=== PATIENT | male | born 1950 | race Caucasian/White ===

== ENCOUNTER → 2020-04-30 | Outpatient (CLI) | payer OTHER ==
[~2020-04-30] MED LIST: DOXYCYCLINE HYC50 MG PO; MELOXICAM15 MG PO; NORCO 10-325 T1 EACH PO; TAPAZOLE10 MG PO; XARELTO10 MG PO
== END ==
LOC: SJCVCIMAG 11:15
PROVIDERS: ATTEND Internal Medicine Cardiovascular Disease
DX: Z01.818 Encounter for other preprocedural examination (principal); I08.2 Rheumatic disorders of both aortic and tricuspid valves; R00.0 Tachycardia, unspecified; I10 Essential (primary) hypertension; I49.1 Atrial premature depolarization

== ENCOUNTER → 2020-05-06 | Outpatient (CLI) | payer OTHER ==
[~2020-05-06] VITALS: Ht 177.8 cm; Wt 127.0 kg
[2020-05-06 07:06] VITALS: BP 112/72
[2020-05-06 07:25] LABS: HEMATOCRIT 39.5 % (42.0-52.0); HEMOGLOBIN 13.1 gm/dL (14.0-18.0); MCH 30.6 pg (26.0-34.0); MCHC 33.3 g/dL (28.0-37.0); MCV 91.8 fL (80.0-100.0); RBC 4.3 mil/uL (4.50-6.00); WBC 6.6 thou/uL (4.0-11.0)
[2020-05-06 07:33] LABS: CALCIUM 8.5 mg/dL (8.5-10.1); CREATININE 0.9 mg/dL (0.7-1.3); POTASSIUM 3.9 mmol/L (3.5-5.1)
--- NOTE | 2020-05-06 13:18 | CATHLAB ---
[facility] [address] [address] INVASIVE PROCEDURE REPORT Name: SOWMYA VUONG Room #: REG JOSE Chaudhary.#: [id number] Admission: 05/06/20 Attend Phys: Krystian Randle MD Discharge: Date of : 54 Report #: [id number] THIS REPORT FOR: cc: Damon Mcneill MD, Mohammad MD Park, Jin S. MD ~ APPROVED REPORT Study performed: 05/06/2020 07:46:03 Patient Details Patient Status: Out-Patient Room #: The patient is a 69 year-old male Event Personnel Krystian Randle Research Physiologist, Pushpa Cordova RN RN, Latha Mccormick Jackson, Sherra RTR Monitor, Julius Echavarria RTR Monitor Procedures Performed Art Access - R radial artery Left Heart Cath w/or w/o Coronaries [id number] [facility] [address] Initial Mod Sed Same Phys/QHP Gr5y 214003 55639 Mod Sed Same Phys/QHP Ea 768209 Hemostasis with Hemoband Indication Positive stress test, Pre-op clearance Risk Factors Hypercholesterolemia, Hypertension Procedure Narrative The Right Wrist^ was infiltrated with 1% Lidocaine subcutaneous anesthesia. A TRANSRADIAL SLENDER 6F GLIDESHEATH KIT #[id number] sheath was inserted into the Right Radial Artery^. Coronary angiography was performed using coronary diagnostic catheters. The right coronary system was accessed and visualized with a 5FR JR 4 #[id number] catheter. The left coronary system was accessed and visualized with a 5FR JL 3.5 #[id number] catheter. The left ventricle was accessed and visualized with a 5FR JR 4 #[id number] catheter. Closure device was deployed with a Fr VASC BAND XL 29CM #[id number]. Hemostasis was obtained with manual pressure following sheath removal without any complications. The patient tolerated the procedure well and there were no complications associated with the procedure. There was no hematoma. [facility] [place] [address] INVASIVE PROCEDURE REPORT Name: SOWMYA VUONG Room #: REG Sarah#: [id number] Admission: 05/06/20 Attend Phys: Krystian Randle MD Discharge: Date of : 54 Report #: [id number] Intraoperative Conscious Sedation Sedation start time: 835 Case end Time: 902 Fentanyl 50 mcg Versed 1 mg Fluoro Time: 4.20 minutes Dose: DAP 9305.00 cGycm2 1485 mGy Contrast Type and Amount: Omnipaque 65 ml Coronary Angiography The patient's coronary anatomy is right dominant. Diagnostic Cath Left Main The left main artery is a large-caliber vessel, patent with no flow-limiting lesions. LAD The LAD is a moderate-sized caliber vessel, traverses the anterior wall and terminates at the apex. There is minimal plaquing in the proximal segment, less than 10%. Diagonal 1 There is a patent vessel, with no flow-limiting lesions. Circumflex The left circumflex artery is a moderate-sized caliber vessel, patent with no flow-limiting lesions. OM1 This is a moderate-sized caliber vessel, with no flow-limiting lesions. OM2 This is a small to moderate-sized caliber vessel, patent with no flow-limiting lesions. Right Coronary The RCA is a dominant vessel, with minimal plaquing in the proximal segment. R PDA This is a moderate-sized caliber vessel, patent with no flow-limiting lesions. RPLV This is a moderate-sized caliber vessel, patent with no flow-limiting lesions. Left Ventriculography Left Ventriculography was not performed. Ejection Fraction was >55% based off patient's Nuclear Cardiac Stress Test. An LVEDP was measured and there is no gradient across the outflow tract. Hemodynamics The aortic pressure is 86/57 mmHg with a mean of 68 mmHg. The left ventricular pressure is 108/6 mmHg with a mean of mmHg. The left ventricular end diastolic pressure is 15 mmHg. Conclusion [facility] [address] [place] [address] INVASIVE PROCEDURE REPORT Name: SOWMYA VUONG Room #: REG M.R.#: [id number] Admission: 05/06/20 Attend Phys: Krystian Randle MD Discharge: Date of : 54 Report #: [id number] 1. Essentially patent epicardial vessels, with minimal plaquing noted in the LAD and RCA. 2. Normal LV systolic function. 3. Recommend guideline directed medical therapy. <ELECTRONICALLY SIGNED> By: Krystian Randle MD 05/06/20 1318 17 17 Krystian Randle MD /INF
== END | disposition home or self-care (01) ==
LOC: CATH 06:31
PROVIDERS: ATTEND Internal Medicine Cardiovascular Disease
DX: R94.39 Abnormal result of other cardiovascular function study (principal); I25.10 Atherosclerotic heart disease of native coronary artery without angina pectoris; I10 Essential (primary) hypertension; E78.00 Pure hypercholesterolemia, unspecified; M19.90 Unspecified osteoarthritis, unspecified site; Z98.890 Other specified postprocedural states; Z79.899 Other long term (current) drug therapy

== ENCOUNTER → 2020-05-14 | Outpatient (CLI) | payer OTHER ==
[~2020-05-14] MED LIST changes: -DOXYCYCLINE HYC50 MG PO; -NORCO 10-325 T1 EACH PO; -XARELTO10 MG PO
== END ==
LOC: SJCVCIMAG 10:39
PROVIDERS: ATTEND Internal Medicine Cardiovascular Disease
DX: M71.22 Synovial cyst of popliteal space [Baker], left knee (principal); M71.21 Synovial cyst of popliteal space [Baker], right knee; I73.9 Peripheral vascular disease, unspecified

== ENCOUNTER → 2020-06-26 | Outpatient (CLI) | payer OTHER ==
[~2020-06-26] MED LIST changes: +NORCO 10-325 T1 EACH PO; +XARELTO10 MG PO
== END ==
LOC: LAB 12:07
PROVIDERS: ATTEND Orthopaedic Surgery
DX: Z01.812 Encounter for preprocedural laboratory examination (principal); Z20.828 Contact with and (suspected) exposure to other viral communicable diseases

== ENCOUNTER 2020-07-02 06:28 | Inpatient (IN) | payer OTHER ==
[2020-06-26 13:00] LABS: HEMATOCRIT 40.8 % (42.0-52.0); HEMOGLOBIN 13.7 gm/dL (14.0-18.0); MCH 30.8 pg (26.0-34.0); MCHC 33.5 g/dL (28.0-37.0); MCV 91.8 fL (80.0-100.0); RBC 4.45 mil/uL (4.50-6.00); RDW 14.8 % (10.5-14.5); WBC 6.7 thou/uL (4.0-11.0)
[2020-06-26 13:09] LABS: ALBUMIN 3.6 g/dL (3.4-5.0); CALCIUM 8.5 mg/dL (8.5-10.1); CREATININE 0.7 mg/dL (0.7-1.3); POTASSIUM 4.2 mmol/L (3.5-5.1)
[2020-06-26 13:12] LABS: PROTIME 10.3 Seconds (9.3-11.4)
[2020-06-26 13:21] LABS: URINE BILIRUBIN NEGATIVE (Negative); URINE BLOOD NEGATIVE (Negative); URINE CLARITY CLEAR; URINE COLOR YELLOW; URINE GLUCOSE-RANDOM* NEGATIVE (Negative); URINE KETONES NEGATIVE (Negative); URINE LEUKOCYTES-REFLEX NEGATIVE (Negative); URINE NITRITE-REFLEX NEGATIVE (Negative); URINE PROTEIN (DIPSTICK) NEGATIVE (Negative); URINE SPECIFIC GRAVITY 1.025 (1.005-1.035); URINE UROBILINOGEN 0.2 E.U./dl (0.2-1.0)
[~2020-07-02] VITALS: Ht 172.7 cm; Wt 127.5 kg
[~2020-07-02 06:28] MED LIST changes: -NORCO 10-325 T1 EACH PO; -XARELTO10 MG PO
[2020-07-02 07:08] VITALS: BP 125/77
[2020-07-02 13:20] VITALS: BP 121/75
--- NOTE | 2020-07-02 15:07 | NUR ---
PATIENT ARRIVED ON UNIT FROM POST OP PT IS ALERT XS 4. V.S.97.8 18 96 121/75 O2 SAT = 94% RA PT HAS SCDS ON ZAY LE'S . CLEAR LIQ DIET AVANCE TOLERATED. FLUIDS INFUSING ORDERED. PT IS PLEASANT AND COOPERATIVE WITH CARE.
[2020-07-02 19:30] VITALS: BP 113/74
[2020-07-03 02:20] VITALS: BP 105/68
--- NOTE | 2020-07-03 02:49 | NUR ---
ASSUMED PT CARE AT 1900.PT C/O PAIN ON HIS L KNEE,MANAGED WITH MED.PT REPOSITIONED WHILE IN BED PER HIS REQUEST.DRSG ON HIS L KNEE C/D/I WITH HEMOVAC.SCD AND ICE IN PLACE.PT WORRIED ABOUT SWELLING ON HIS L LEG,ELEVATED WITH A PILLOW.PT SLEEPING AT THIS TIME.FALL PRECAUTIONS IN PLACE.CALL LIGHT WITHIN REACH.
[2020-07-03 04:52] LABS: HEMATOCRIT 29.3 % (42.0-52.0); HEMOGLOBIN 9.8 gm/dL (14.0-18.0); MCH 30.7 pg (26.0-34.0); MCHC 33.4 g/dL (28.0-37.0); RBC 3.19 mil/uL (4.50-6.00); RDW 14.5 % (10.5-14.5); WBC 8.3 thou/uL (4.0-11.0)
--- NOTE | 2020-07-03 07:33 | NUR ---
PT RESTING IN BED STATES NO PAIN. HAS DRESSING INTACT TO LEFT KNEE WILL PULL DRAIN THIS AM. PT TO HAVE THERAPY TODAY. PT IS PLEASANT AND COOPERATIVE WITH CARE.
[2020-07-03 07:40] VITALS: BP 112/70
--- NOTE | 2020-07-03 10:00 | NUR ---
chart review. pt here pod 1 with left knee. cm visited with him after he worked with physical therapy. cm cont to wear own face mask and shield during visit. intro to cm, transition of care ie outpt, hh, and skilled. he prefers going by james, he is able to make his needs known. he reported, lives home with , daughter inlaw and grandson. have 6 steps to enter home with bilat handrails but can only hold on to 1 at a time cause width. basement stairs 14 but don't have to go to basement. has his own cane and walker here. has grab bar next to toilet. work outside the home. manage own medication at home and drives vehicle. no past hh or rehab. per james. bedside nurse and physical therapy going to reach out to [facility] rt did not do well with therapy, possible will need skilled prior to home. will need auth if goes skilled. will cont following as needed for dc needs.
--- NOTE | 2020-07-03 10:32 | NUR ---
WOUND CONSULT; THIS IS ONLY AN AT RISK CONSULT RE; DECREASED MOBILITY PER RN. TURING AND A LOW AIR LOSS BED PUMP WILL BE ORDERED. RECOMMENDATIONS; SEE ABOVE DISCUSSED WITH RN
--- NOTE | 2020-07-03 11:48 | O ---
[facility] [place] [address] OPERATIVE REPORT Name: SOWMYA VUONG Room #: 434-P [facility] IN M.R.#: [id number] Admission: 07/02/20 Attend Phys: Sean Kahn MD Discharge: Date of : 54 Report #: [id number] THIS REPORT FOR: cc: Damon Mcneill MD,Damon Kahn,Sean Orourke MD ~ CC: Sean Mcneill DATE OF SERVICE: 07/02/2020 PREOPERATIVE DIAGNOSES: End-stage degenerative arthritis, left knee with marked varus malalignment and flexion contracture. POSTOPERATIVE DIAGNOSES: End-stage degenerative arthritis, left knee with marked varus malalignment and flexion contracture. PROCEDURE: Left total knee arthroplasty. SURGEON: Sean Kahn MD INDICATIONS: This heavy 69-year-old gentleman has rather severe degenerative arthritis involving both knees and severe degenerative changes involving both feet and ankles. Despite these marked problems and his obesity, he has remained ambulatory and is actually still working. Both knees demonstrate significant varus malalignment and mild flexion contracture. We discussed treatment options and the potential risks and benefits. He understands well and prefers to go ahead with total knee replacement, beginning on the left side. DESCRIPTION OF PROCEDURE: The patient was taken to the operating room where he was placed under general anesthesia. A femoral nerve block was also applied. The left lower extremity was meticulously prepped and draped. A thigh tourniquet applied and inflated to 300 mmHg. An anterior longitudinal skin incision was made and carried through the medial retinaculum. Marked degenerative change in all 3 compartments and significant varus malalignment with medial compartment collapse was noted. The [employer] and [employer] knee system was utilized. Intramedullary guides were used on both the femur and the tibia. The femur was cut in 5 degrees of valgus and the tibia was cut perpendicular to long axis of the bone. This resulted in satisfactory improvement in the severe varus malalignment. Sufficient bone was resected to allow correction of the preoperative flexion contracture. The patellar surface was resected. The femur was best suited for a size 5 left femoral component. The tibia was also best suited for a size 5 tibial component. A trial reduction was performed and a 9 mm insert fit nicely resulting in full knee extension and satisfactory flexion and satisfactory stability. A 35 mm patellar button seemed to fit nicely. [address] [address] OPERATIVE REPORT Name: SOWMYA VUONG Room #: 434-P [facility] IN .R.#: [id number] Admission: 07/02/20 Attend Phys: Sean Kahn MD Discharge: Date of : 54 Report #: [id number] The trial components were removed. The intramedullary canal was blocked with bone block on both the femoral and tibial sides. Methyl methacrylate cement was mixed and injected into the porous surface of the tibia. There was a moderate defect at the posterior medial corner due to his chronic varus positioning. The tibial baseplate extended slightly over this defect and the area was prepared with multiple small drill holes and the cement was extended out into this defect to support the tibial baseplate. The baseplate seemed to fit nicely and appeared to be secure. Excess cement was removed around its margin. The 9 mm polyethylene insert was then applied and snapped into position. It seated nicely and appeared to be secure. The left size 5 cruciate retaining Legion femoral component was then impacted on to the distal femur. It also seated nicely and appeared to be secure. A 35-mm Marisol II patellar button was cemented in place with appropriate anchor holes and secured with a patellar clamp while the cement hardened. All excess cement was removed from around its margin. Once the cement was firm, range of motion, alignment and stability were once again assessed and felt to be satisfactory. There was a clear improvement in the preoperative varus malalignment and the knee demonstrated full extension and flexion beyond 130 degrees. The patella seemed to track nicely and appears to be stable. At this point, the tourniquet was deflated after a total tourniquet time of 60 minutes. There was moderate ongoing generalized oozing, but satisfactory hemostasis was established. A single Hemovac was left in the wound exiting through a separate stab incision. The fascia was closed with multiple #1 Vicryl sutures. The subcutaneous tissues were closed with 0 Monocryl. The skin was closed with skin ricarda. Sterile dressing was applied. The patient was awakened and returned to recovery room in good condition. <ELECTRONICALLY SIGNED> By: Sean Kahn MD 07/03/20 1148 0945 1049 Sean Kahn MD /nt
[2020-07-03] MEDS ORDERED: XARELTO10 MG PO (12:11)
[2020-07-03] MEDS ORDERED: NORCO 10-325 T1 EACH PO (12:12)
--- NOTE | 2020-07-03 14:35 | NUR ---
Nutrition: pt admitted POD 1 knee replacement. Received consult. BMI 42.7 indicating extreme class 3 obesity. Pt eating 100% of meals on regular diet. PMH: ANNALISAD, morbid obesity. Offered pt education for weight loss and he declined. Encouraged pt to contact RD if decides he would like education. Low nutrition risk.
[2020-07-03 16:00] VITALS: BP 116/80
[2020-07-03 19:50] VITALS: BP 11/63; BP 111/63
[2020-07-04 00:16] VITALS: BP 143/72
[2020-07-04 02:04] VITALS: BP 119/65
[2020-07-04 02:14] LABS: BASOPHILS 0.6 % (0.0-2.0); EOSINOPHILS 1.3 % (0.0-3.0); HEMATOCRIT 28.9 % (42.0-52.0); HEMOGLOBIN 9.4 gm/dL (14.0-18.0); LYMPHOCYTES 10.5 % (24.0-44.0); MCH 30.2 pg (26.0-34.0); MCHC 32.6 g/dL (28.0-37.0); MCV 92.6 fL (80.0-100.0); MONOCYTES 11.5 % (1.0-8.0); PLATELET COUNT 141 thou/uL (150-400); POLYS 76.1 % (36.0-66.0); RBC 3.12 mil/uL (4.50-6.00); RDW 14.6 % (10.5-14.5); WBC 9.2 thou/uL (4.0-11.0)
[2020-07-04 02:21] LABS: ALBUMIN 2.6 g/dL (3.4-5.0); CALCIUM 7.7 mg/dL (8.5-10.1); CREATININE 0.9 mg/dL (0.7-1.3); MAGNESIUM 1.9 mg/dL (1.8-2.4); PHOSPHORUS 2.9 mg/dL (2.5-4.9); POTASSIUM 4.2 mmol/L (3.5-5.1); TOTAL BILIRUBIN 0.5 mg/dL (0.2-1.0); TOTAL PROTEIN 6.3 g/dL (6.4-8.2)
[2020-07-04 08:19] VITALS: BP 131/61
[2020-07-04 17:05] VITALS: BP 102/58
[2020-07-04 19:25] VITALS: BP 113/67
--- NOTE | 2020-07-05 05:00 | NUR ---
PT REMAINS ALERT AND ORIENTED.HE HAS BEEN USING THE URINAL.ORAL ANALGESICS MANAGING PAIN. L KNEE WITH ASHLEIGH DRSG IN PLACE, WITH SOME SEROUS DRAINAGE. BEEN CALM TONIGHT.CALL LIGHT WITHIN REACH.
[2020-07-05 05:46] LABS: BASOPHILS 0.7 % (0.0-2.0); EOSINOPHILS 1.9 % (0.0-3.0); HEMATOCRIT 28.3 % (42.0-52.0); HEMOGLOBIN 9.3 gm/dL (14.0-18.0); LYMPHOCYTES 11.9 % (24.0-44.0); MCH 30.5 pg (26.0-34.0); MCV 92.5 fL (80.0-100.0); MONOCYTES 9.7 % (1.0-8.0); PLATELET COUNT 160 thou/uL (150-400); POLYS 75.8 % (36.0-66.0); RBC 3.06 mil/uL (4.50-6.00); RDW 14.5 % (10.5-14.5); WBC 9.2 thou/uL (4.0-11.0)
[2020-07-05 06:07] LABS: CALCIUM 8.2 mg/dL (8.5-10.1); CREATININE 0.8 mg/dL (0.7-1.3); MAGNESIUM 2.1 mg/dL (1.8-2.4)
[2020-07-05 07:00] VITALS: BP 127/83
--- NOTE | 2020-07-05 13:17 | NUR ---
Assumed care of pt at 0700. Dressing on lt knee changed by ortho team. Pain controlled with prn pain meds. Worked with physical therapy. Needs SNF placement. Call light within reach. Uses urinal. Fall precautions in place. Will continue to monitor.
[2020-07-05 16:00] VITALS: BP 118/69
[2020-07-05 19:15] VITALS: BP 86/46
[2020-07-05 22:52] VITALS: BP 86/46
--- NOTE | 2020-07-06 02:41 | NUR ---
PT AOX4, PT RESPONDS APPROPRIATELY TO PROMPTS, NOTED TO HAVE LOOSENING OF ASSOCIATION IN CONVERSATION. PT REPORTS 4/10 PAIN IN BLE. PT RECEIVING PRN PO NORCO Q4HR WITH PRN PO OXYCODONE Q4HR AVAILABLE. PT RESTING IN BED THROUGHOUT THE SHIFT, FREQUENT REPOSITIONING ENCOURAGED, PT REMAINS ON LOW AIR LOSS MATTRESS. PT NOTED TO HAVE DIFFICULTY TO REPOSITIONING INDEPENDENTLY, REFUSING FREQUENT REPOSITIONING DUE TO REPORTS OF COMFORT. PT TOLERATING PO INTAKE OF FLUIDS, VOIDING WITH URINAL. PT ENCOURAGED TO NOTIFY STAFF FOR ALL NEEDS. CALL LIGHT WITHIN REACH, BED ALARM ON, BED IN LOWEST POSITION, FREQUENT MONITORING WILL CONTINUE.
[2020-07-06 05:45] LABS: HEMATOCRIT 28.4 % (42.0-52.0); HEMOGLOBIN 9.4 gm/dL (14.0-18.0); MCH 30.5 pg (26.0-34.0); MCHC 33.3 g/dL (28.0-37.0); MCV 91.7 fL (80.0-100.0); RBC 3.09 mil/uL (4.50-6.00); RDW 14.2 % (10.5-14.5); WBC 9.6 thou/uL (4.0-11.0)
[2020-07-06 06:03] LABS: CREATININE 0.7 mg/dL (0.7-1.3); POTASSIUM 3.8 mmol/L (3.5-5.1)
[2020-07-06 07:00] VITALS: BP 121/73
[2020-07-06 07:41] VITALS: BP 121/73
--- NOTE | 2020-07-06 11:57 | NUR ---
Assumed care of pt at 0700. Pt's dressing saturated this am. Dressing changed. Provider notified. Pt up to chair with physical therapy. Awaiting ins auth for rehab placement. Call light within reach. Fall precautions in place. Will continue to monitor.
[2020-07-06 16:00] VITALS: BP 136/77
--- NOTE | 2020-07-06 16:00 | NUR ---
FAXED CLINICAL UPDATE TO [facility] RECEIVED CONFIRMATION AND LEFT MSG WITH ADM. DP TO FOLLOW.
--- NOTE | 2020-07-06 16:12 | NUR ---
CLINICAL UPDATES SENT TO [facility] FOR [employer] AUTH. CM FOLLOWING REGARDING DC PLANNING.
[2020-07-06 21:30] VITALS: BP 147/92
--- NOTE | 2020-07-07 03:39 | NUR ---
ALERT AND ORIENTED WITH SOME MILD FORGETFULNESS. LLE SWOLLEN. DISCOLARATION TO BOTH LEGS. LEFT KNEE WITH AQUACEL, SATURATED BUT NOT READY TO BE CHANGED YET-SEROUS OUTPUT NOTED. AFEBRILE. OBSERVED USING I/S. ON ROOM AIR, NO COUGH OR SOA.USES URINAL.PAIN MANAGED BY THE PRN ORAL ANALGESICS. WILL CONTINUE WITH POC TILL EOS.
[2020-07-07 04:00] VITALS: BP 124/77
[2020-07-07 07:51] VITALS: BP 126/82
[2020-07-07 17:06] VITALS: BP 114/72
--- NOTE | 2020-07-07 19:23 | NUR ---
Assumed care of pt at 0700. Pain controlled with prn pain meds. New drainage noted on lt knee dressing. Awating ins auth for skilled. Call light within reach. Fall precautions in place. Report given to melissa DOMINGUEZ.
[2020-07-07 20:00] VITALS: BP 129/78
--- NOTE | 2020-07-08 02:43 | NUR ---
PT'S DRSG WAS SOAKED WITH SEROUS DRAINAGE AT START OF SHIFT,IT WAS CHANGED.THE L KNEE WAS RED,WARM AND SWOLLEN.PER REPORT,PHYSICIAN AWARE.PT C/O PAIN ON THAT KNEE,MANAGED WITH MED.URINAL AT BEDSIDE.PT PROGRESSING SLOWLY TOWARDS DC GOALS.PT LOOKING FORWARD TO DC LATER IN THE DAY.CALL LIGHT WITHIN REACH.
[2020-07-08 04:27] VITALS: BP 148/76
[2020-07-08 07:10] VITALS: BP 163/81
--- NOTE | 2020-07-08 12:56 | NUR ---
PT A&OX4, VSS, AMBULATE BY WHEELCHAIR AND/OR TWO PERSON ASSIST. PT'S LEFT KNEE SWOLLEN AND DRAINING, DRESSING IS REINFORCED VIA DR SANFORD'S ASSESSMENT. PATIENT WORKED WITH PT AND SAT IN CHAIR TODAY. FALL PRECAUTIONS IN PLACE, WILL CONTINUE TO MONITOR.
--- NOTE | 2020-07-08 14:57 | NUR ---
FAXED CLINICAL UPDATE TO [facility] RECEIVED CONFIRMATION. NOTIFIED BY SW THAT [facility] RECEIVED AUTH. .
--- NOTE | 2020-07-08 15:34 | NUR ---
CM CALLED AND SPOKE WITH ADMISSIONS AT [facility] THIS AFTERNOON AND SHE INDICATED THAT THEY HAD RECEIVED AUTH FROM [facility] BUT THAT THEY DIDN'T HAVE ANY BEDS OPEN TODAY. THEY ARE ABLE TO ACCEPT PT TOMORROW Monday07/09/20 VAN PICKUP AT 11:00. CM NOTIFIED PT'S HIS DTR, DR. SANFORD, DR. BURRELL, AND SGAE PT. CM WROTE DC DETAILS ON THE UNIT BOARD AND REQUESTED THAT CHART COPY BE UPDATED. REPORT TO BE CALLED TO . CM TO FOLLOW UP IN AM AND INSURE EVERYTHING IS ARRANGED.
[2020-07-08 16:00] VITALS: BP 163/63
[2020-07-08 19:19] VITALS: BP 130/69
--- NOTE | 2020-07-09 01:39 | NUR ---
PT'S KNEE STILL SWOLLE,RED AND WARM TO TOUCH.SHAKER OPERATOR ON DUTY AND DR SANFORD NOTIFIED,ORDERS NOTED AND CARRIED OUT.PT GOT THE FIRST DOSE OF VANCO AFTER THE BLOOD CX AND WOUND CX WERE OBTAINED.PT'S DRSG WAS CHANGED THIS SHIFT PER ORDER.URINAL AT BEDSIDE.PT LOOKING FORWARD TO BE DC'D LATER IN THE DAY BUT WORRIED IF THE RESULT OF LAB WORK WILL BE AVAILABLE BEFORE HIS DC.PT C/O PAIN ON HIS KNEE,MANAGED WITH MED.PT SLEEPING ON HIS BED AT THIS TIME.LOW AIR LOSS MATTRESS AND FALL PRECAUTIONS IN PLACE.CALL LIGHT WITHIN REACH.
[2020-07-09 05:51] LABS: ABSOLUTE NEUTROPHILS 6.6 thou/uL (1.4-8.2); BASOPHILS 0.9 % (0.0-2.0); EOSINOPHILS 3.8 % (0.0-3.0); LYMPHOCYTES 13.9 % (24.0-44.0); MONOCYTES 8.6 % (1.0-8.0); POLYS 72.8 % (36.0-66.0); WBC 9.9 thou/uL (4.0-11.0)
[2020-07-09 07:49] VITALS: BP 140/70
[2020-07-09 08:43] LABS: CREATININE 0.9 mg/dL (0.7-1.3); POTASSIUM 4.3 mmol/L (3.5-5.1)
[2020-07-09 08:46] LABS: HEMATOCRIT 29.2 % (42.0-52.0); HEMOGLOBIN 9.6 gm/dL (14.0-18.0); MCH 30.1 pg (26.0-34.0); MCHC 32.9 g/dL (28.0-37.0); MCV 91.4 fL (80.0-100.0); RBC 3.19 mil/uL (4.50-6.00); RDW 14.7 % (10.5-14.5)
--- NOTE | 2020-07-09 12:28 | NUR ---
CM INFORMED AKSHAT AT [facility] PT WILL NOT TRANSFER TO SNF TO D/T PT STAYING ANOTHER DAY TO HAVE CULTURES DONE FOR POSSIBLE INFECTION. PT AWARE. CM LFT VM FOR PT SHANTEL LINK.
[2020-07-09 16:46] VITALS: BP 128/68
--- NOTE | 2020-07-09 17:23 | NUR ---
PT IS A&OX4, VSS, AMBULATES WITH TWO PERSON ASSIST, WITH REGULAR DIET. PT WOUND HAS BEEN REINFORCE DRESSING, AND MEDICATIONS GIVEN ORDERED. DR MANCIA VISIT WITH PT, DR SANFORD REDRESSED PATIENT'S WOUND. NURSE REDRESSED PT'S WOUND. FALL PRECAUTIONS IN PLACE, WILL CONTINUE TO MONITOR.
[2020-07-09 18:57] VITALS: BP 140/61
--- NOTE | 2020-07-10 01:24 | NUR ---
ASSUMED PT CARE AT AROUND 1915 HRS. PT IS ALERT AND ORIENTED.STATED HE IS DEPRESSED BUT NOT INTERESTED IN GETTING ANY TREATMENT FOR THAT. HE SAYS HE HAS BEEN DEPRESSED ALL HIS LIFE?ANY WAY, PAIN TO LEFT KNEE MOSTLY WITH MOVEMENT.GIVEN PRN NORCO. WOUND CULTURE COLLECTED. DRSG TO LEFT KNEE REINFORCED. STILL SOME MILD AMOUNTS OF SEROUS DRAINAGE NOTED. LEG WRAPPED FOR EDEMA CONTROL.IV VANCOMYCIN GIVEN. PT IS AFEBRILE. DENIES ANY SOA OR COUGH.USES URINAL. CALL LIGHT WITHIN REACH.WILL CONTINUE WITH POC TILL EOS.
[2020-07-10 04:23] VITALS: BP 130/70
[2020-07-10 07:30] VITALS: BP 128/81
[2020-07-10 08:30] LABS: HEMATOCRIT 27.4 % (42.0-52.0); MCH 29.7 pg (26.0-34.0); MCHC 32.9 g/dL (28.0-37.0); MCV 90.3 fL (80.0-100.0); RBC 3.03 mil/uL (4.50-6.00); RDW 14.5 % (10.5-14.5)
[2020-07-10 08:41] LABS: CALCIUM 8.5 mg/dL (8.5-10.1); CREATININE 0.7 mg/dL (0.7-1.3); POTASSIUM 4.1 mmol/L (3.5-5.1)
--- NOTE | 2020-07-10 10:14 | NUR ---
followup: pt consistently eating 100% of a regular diet. Class III obesity with BMI 42.7. Declined need for diet education. Remains at low nutrition risk. Physician has indicated protein calorie malnutrition: RD will defer
--- NOTE | 2020-07-10 11:47 | NUR ---
leslie abdalla/roxi called cm to f/u on pt d/c date. leslie was advised pt will not d/c today. per leslie, "we will have to get a new auth." cm verbalized understanding. cm to cont to follow.
[2020-07-10] MEDS ORDERED: DOXYCYCLINE HYC50 MG PO (15:44)
--- NOTE | 2020-07-10 15:58 | NUR ---
PT CARE ASSUMED AT 0700. A&Ox4. PT UP IN THE RECLINER AND VERY ANXIOUSE ABOUT DISCHARGE. CONTINUES TO ASK ALL DAY ABOUT WHEN HE WILL BE DISCHARGED. PER DR. SANFORD AND PT IS CLEARED TO DISCHARGE. ORDERS ARE IN. CASE MANAGMENT CONTACTED ([facility]) TO SET UP TRANSPORTATION AND UPDATE [facility]. IV PT WITH NO REDNESS OR EDEMA. SALINE LOCKED. DRESSING CHANGE PERFORMED BY DR. SANFORD. SR. SANFORD WANTS A ASHLEIGH DRESSING APPLIED TO THE KNEE NOW. FALL PROTOCOL IN PLACE. WILL CONTINUE TO MONITOR. CALL LIGHT IN REACH.
[2020-07-10 16:16] VITALS: BP 111/56
--- NOTE | 2020-07-10 19:15 | HC ---
[facility] [place] [address] CONSULTATION Name: SOWMYA VUONG Room #: 434-P ADM IN M.R.#: [id number] Admission: 07/02/20 Attend Phys: Sean Kahn MD Discharge: Date of : 54 Report #: [id number] THIS REPORT FOR: cc: Damon Mcneill MD,Damon Rosa,Ottoniel Munson MD ~ CC: Sean Mcneill DATE OF SERVICE: 07/09/2020 CHIEF COMPLAINT: Drainage from left total knee replacement incision line. HISTORY OF PRESENT ILLNESS: This is a 69-year-old male patient with a history of severe degenerative joint disease involving his left knee. He underwent total knee replacement surgery with Dr. Kahn on 07/02/2020. Procedure went well. He has been noted to have a little bit of erythema along the incision line and some drainage of serous fluid from the proximal end of the incision line. I have been asked to see him with regard to wound care recommendations today. Dr. Tobias has also been asked to see him with regard to antibiotic recommendations. PAST MEDICAL HISTORY: Positive for history of hyperthyroidism, morbid obesity, chronic lower extremity deformities and chronic lower extremity edema. The patient denies any pain associated with his leg, has been able to be weightbearing here in the hospital and he is hoping to go to a rehab facility very shortly. ALLERGIES: No known drug allergies. MEDICATIONS: Include acetaminophen, aluminum hydroxide, diphenhydramine, ferrous sulfate, methimazole, metoprolol, morphine, ondansetron, Xarelto, vancomycin. SOCIAL HISTORY: Negative for current alcohol or tobacco use. FAMILY HISTORY: Noncontributory. REVIEW OF SYSTEMS: CONSTITUTIONAL: The patient denies fever, chills or weight loss. NEUROLOGICAL: The patient denies focal weakness, numbness or tingling. EYES: The patient denies visual changes, redness, or drainage. ENT: The patient denies earache, nasal drainage or sore throat. CARDIOVASCULAR: The patient denies chest pain, palpitation or diaphoresis. PULMONARY: The patient denies cough or shortness of breath. GASTROINTESTINAL: The patient denies nausea, vomiting, diarrhea or abdominal [address] [address] CONSULTATION Name: SOWMYA VUONG Room #: 434-P [facility] IN M.R.#: [id number] Admission: 07/02/20 Attend Phys: Sean Kahn MD Discharge: Date of : 54 Report #: [id number] pain. ORTHOPEDIC: The patient complains of the limited range of motion and some swelling involving his left knee area following his total knee replacement surgery. He denies pain associated with this. Other systems in a 14-point review of systems are negative. PHYSICAL EXAMINATION: VITAL SIGNS: At this time include temperature 35.8, pulse 101, respiratory rate of 20, blood pressure of 140/70. GENERAL: This is a well-developed male patient who appears to be in minimal distress. HEENT: Head normocephalic. Nose and throat are clear. NECK: Supple. ABDOMEN: Soft. Bowel sounds present. EXTREMITIES: Lower extremities demonstrate palpable distal pulses. He has 2+ edema to his lower extremities and some venous dermatitis changes involving his left lower leg. There is a vertical incision along the anterior portion of the left knee, it is well approximated. There is some serous fluid that is leaking from between the incision line at the proximal portion of the incision. There is some mild erythema around the prepatellar region. It is not warm or hot to touch. NEUROLOGIC: The patient is alert and oriented and appropriate. LABORATORY STUDIES: Include white blood cell count 8000 with a hemoglobin of 9.6, hematocrit of 29.2. Sodium 138, potassium 4.3, chloride 99, CO2 of 28, BUN 16, creatinine 0.9. C-reactive protein is elevated at 202.9. INR is 1.0. MRSA PCR is positive on 06/26/2020. Blood cultures from 07/08/2020 thus far are negative. Surface culture from the incision line is pending. CLINICAL IMPRESSION: 1. Degenerative joint disease, now status post left total knee replacement on 07/02/2020 with now some mild erythema and some persistent serous drainage. 2. Morbid obesity. 3. Hyperthyroidism, currently using methimazole. RECOMMENDATIONS: At this point in time, I agree with Infectious Disease evaluation for recommendations for antibiotic therapy. I would recommend at this time topical Betadine paint to the incision line followed by an absorptive secondary dressing to be changed b.i.d. and as necessary for soiling or saturation. If he is to stay here in the more acute setting or rehab here at [facility], I would recommend that we replace a Prevena VAC dressing using the hospital KCI pump to both provide some compression to the incision line as well as to wick the fluid away. If he is going to outside rehab, I would recommend Sofsorb or similar absorbent secondary dressings to help wick and hold the serous fluid. [facility] [address] [place] [address] CONSULTATION Name: SOWMYA VUONG Room #: 434-P ADM IN M.R.#: [id number] Admission: 07/02/20 Attend Phys: Sean Kahn MD Discharge: Date of : 54 Report #: [id number] I appreciate being asked to see him in consultation. <ELECTRONICALLY SIGNED> By: Ottoniel Rosa MD 07/10/20 1915 1110 1151 Ottoniel Rosa MD /nt
[2020-07-10 19:20] VITALS: BP 117/57
[2020-07-10 23:39] VITALS: BP 117/57
--- NOTE | 2020-07-11 02:38 | NUR ---
PT AOX4. PT DENIES PAIN DURING MEDICATION ADMINISTRATION AND SHIFT ASSESSMENT. PT HAS PRN PO NORCO Q4HR AND PRN PO OXYCODONE Q4HR AVAILABLE. PT NOTED TO BECOME FOCUSED ON SPECIFIC TOPICS IN CONVERSATION, REQUIRING CONSOLING. PT NOTED TO BE EASY TO CONSOLE WHEN QUESTIONS ANSWERED AND REMINDED ABOUT PLAN OF CARE. PT TOLERATING PO INTAKE OF FLUIDS AND REGULAR DIET. PT VOIDING WITH URINAL AT BEDSIDE. PT RESTING IN BED THROUGHOUT SHIFT, NOTED TO HAVE SOME DIFFICULTY WITH REPOSITIONING INDEPENDENTLY WHILE IN BED. PT REQUIRING MAX ASSIST WITH REPOSITIONING AND TRANSFERS. FREQUENT REPOSITIONING ENCOURAGED, LOW AIR LOSS MATTRESS REMAINS IN PLACE. PT CONTROLLING ELEVATION OF FOOT OF BED AND HEAD OF BED WITH BED CONTROLS, ENCOURAGED TO KEEP BLE ELEVATED. ENCOURAGED PT TO NOTIFY STAFF FOR ALL NEEDS, CALL LIGHT WITHIN REACH, BED ALARM ON, BED IN LOWEST POSITION, FREQUENT MONITORING WILL CONTINUE.
[2020-07-11 04:12] VITALS: BP 119/59
[2020-07-11 06:29] LABS: HEMATOCRIT 27.1 % (42.0-52.0); MCH 29.9 pg (26.0-34.0); MCV 90.4 fL (80.0-100.0); RDW 14.5 % (10.5-14.5); WBC 9.1 thou/uL (4.0-11.0)
[2020-07-11 06:38] LABS: CALCIUM 8.5 mg/dL (8.5-10.1); CREATININE 0.7 mg/dL (0.7-1.3); MAGNESIUM 2.1 mg/dL (1.8-2.4)
[2020-07-11 07:53] VITALS: BP 135/72
--- NOTE | 2020-07-11 10:30 | NUR ---
discussed during prime time, still needing insurance auth for [facility].
--- NOTE | 2020-07-11 11:45 | D ---
[facility] [place] [address] DISCHARGE SUMMARY Name: SOWMYA VUONG Room #: 434-P ADM IN M.R.#: [id number] Admission: 07/02/20 Attend Phys: Sean Kahn MD Discharge: Date of : 54 Report #: [id number] THIS REPORT FOR: cc: Damon Mcneill MD,Damon Kahn,Sean Orourke MD ~ THIS REPORT FOR: //name// CC: Sean Mcneill DATE OF SERVICE: 07/10/2020 FINAL DIAGNOSES: End-stage degenerative arthritis left knee, total knee replacement; morbid obesity. HISTORY OF PRESENT ILLNESS: This very heavy 69-year-old gentleman is still fairly active and working, but is quite limited because of severe degenerative change involving both knees and both feet. We have elected to go ahead with left total knee arthroplasty hoping to maintain function. HOSPITAL COURSE: The patient was admitted and taken to the operating room on 07/02. He underwent a left total knee replacement, which generally went well, although it was quite difficult given his size and significant deformity. Postoperatively, he seemed to be making slow progress, but with great difficulty with physical therapy as he was so heavy and so deconditioned that he had problems advancing his activity. It became apparent that he really would not be able to go to his own home with family assistance, given his size and limited functional ability. We started making plans for an extended care facility or rehab facility and this took quite some time to get approval. In the meanwhile, he continued to have some serous drainage as well as some generalized edema in the left lower extremity while there was no clear evidence of infection and he remained afebrile with normal white count, there was a bit of erythema about the knee and some generalized swelling lower in the leg, which was concerning. Given this cultures of the serous drainage fluid and blood cultures were obtained at the time of this dictation, there remained no growth. His white count remains normal. He remains afebrile. We have been quite attentive to the wound with frequent dressing changes and gentle compression using an Markus wrap and at this point, there is very minimal further drainage and no erythema and really no knee discomfort. Given this, it seems to me that he is making satisfactory progress and probably is ready for discharge to a rehab facility. I have discussed this with Dr. Tobias from Infectious Disease and he feels it would be appropriate to at least cover him with an oral antibiotic regimen over the coming week or two while we are monitoring. I would ask that the therapist and nurses at his facility contact me frequently to report on the [facility] [address] [place] [address] DISCHARGE SUMMARY Name: SOWMYA VUONG Room #: 434-P ADM IN M.R.#: [id number] Admission: 07/02/20 Attend Phys: Sean Kahn MD Discharge: Date of : 54 Report #: [id number] dressing and wound, he may advance his activity as comfort strength and balance will allow. DISCHARGE MEDICATIONS: Include Xarelto 10 mg daily and hydrocodone 10 mg q.4-6 hours p.r.n. for pain as well as an oral antibiotic regimen, which will be directed by Dr. Tobias. FOLLOWUP: I will plan to see him back in my office in 1 or 2 weeks for followup. <ELECTRONICALLY SIGNED> By: Sean Kahn MD 07/11/20 1145 [id number] Sean Kahn MD /nt
--- NOTE | 2020-07-11 13:31 | NUR ---
PT CARE ASSUMED AT 0700. A&Ox4. PT TOLERATING PAIN WELL WITH HYDROCODONE. AWAITING REAUTHORIZATION TO DISCHARGE TO [facility]. IV PATENT WITH NO REDNESS OR EDEMA, SALINE LOCKED. ASHLEIGH DRESSING APPLIED TO INCISION SITE. EDEMA PRESENT TO THE L. LOWER EXTREMITY. WRAPPED WITH DENICE BANDAGE. DAILY WEIGHT DUE TO BEING DIUREESED. UP TO THE RECLINER MOST OF THE DAY. PT MEDICALLY STABLE AND CLEARED BY ORTHO, WOUND, AND ID. VITALS STABLE. FALL PROTOCOL IN PLACE. CALL LIGHT IN REACH. WILL CONTINUE TO MONITOR. MINIMAL SEROUSE DRAINAGE FROM INCISSION SITE, NO HEAT, OR SIGNS OF INFECTION.
[2020-07-11 15:55] VITALS: BP 112/49
[2020-07-11 19:30] VITALS: BP 139/72
--- NOTE | 2020-07-12 03:18 | NUR ---
PT CARE ASSUMED AT 1900 WITH PT IN BED WATCHING TV.PT IS A/O X4.PT UP WITH 2 PERSONS ASSIST.PT USED BEDPAN AND URINAL.PT CALLS OUT FOR HELP AND USES CALL LIGHT APPROPRIETELY.PAIN MANAGED WITH HYDROCODONE.IV ACCESS ON NATAN AND SL .PT IS I AND O STRICTLY.WILL CONTINUE TO MONITOR POC
[2020-07-12 05:30] VITALS: BP 144/78
[2020-07-12 06:05] LABS: HEMATOCRIT 28.8 % (42.0-52.0); HEMOGLOBIN 9.4 gm/dL (14.0-18.0); MCH 29.6 pg (26.0-34.0); MCHC 32.6 g/dL (28.0-37.0); RBC 3.17 mil/uL (4.50-6.00); RDW 14.6 % (10.5-14.5); WBC 8.9 thou/uL (4.0-11.0)
[2020-07-12 06:43] LABS: CALCIUM 8.8 mg/dL (8.5-10.1); CREATININE 0.9 mg/dL (0.7-1.3); MAGNESIUM 2.2 mg/dL (1.8-2.4)
[2020-07-12 07:06] VITALS: BP 128/75
--- NOTE | 2020-07-12 14:26 | NUR ---
PT CARE ASSUMED AT 0700. A&Ox4. PT UP IN THE RECLINER ALL DAY. ONE TIME DOSE OF LASIX GIVEN PER MD ORDER. IV PATENT WITH NO REDNESS OR EDEMA, SALINE LOCKED. LEFT LOWER EXTREMITY WRAPPED WITH DENICE WRAP FOR COMPRESSION. INCISION SITE STILL WEEPING SEROUSE DRAINAGE. PER CHANGE ASHLEIGH DRESSING DAILY DRESSING CHANGE COMPLEETE. PER DR. MANCIA KEEP PATIENT IN REVERSE TRENDELENBURG WITH HEAD ELEVATED AT ALL TIME EXCEPT MEALS. FALL PROTOCOL IN PLACE. CALL LIGHT IN REACH. WILL CONTINUE TO MONITOR.
[2020-07-12 16:59] VITALS: BP 134/54
[2020-07-12 18:58] VITALS: BP 140/67
--- NOTE | 2020-07-13 02:32 | NUR ---
ASSUMED PT CARE AROUND 1900. A&OX4. C/O LEFT KNEE PAIN. PRN HYDROCODONE GIVEN INDICATED. DENICE COMPRESSION WRAP TO LLE. PT REFUSED TO HAVE BLE ELEVATED ON PILLOW TO IMPROVE SWELLING. BED IN REVERSE TRENDELENBERG WITH HOB ELEVATED TO HELP REDUCE BLE EDEMA. VOIDING ADEQUATELY PER URINAL. PT HAS BEEN SLEEPING MOST OF THE NIGHT. RESPIRATIONS EVEN AND UNLABORED. HE IS ANTICIPATING D/C TO REHAB SOON. FALL PRECAUTIONS IN PLACE. PROGRESSING TOWARD POC GOALS.
[2020-07-13 03:19] VITALS: BP 147/62
[2020-07-13 05:41] LABS: HEMATOCRIT 27.3 % (42.0-52.0); MCH 29.6 pg (26.0-34.0); MCHC 32.9 g/dL (28.0-37.0); RBC 3.03 mil/uL (4.50-6.00); WBC 8.7 thou/uL (4.0-11.0)
[2020-07-13 05:47] LABS: CALCIUM 8.5 mg/dL (8.5-10.1); CREATININE 0.9 mg/dL (0.7-1.3); MAGNESIUM 2.2 mg/dL (1.8-2.4); POTASSIUM 4.1 mmol/L (3.5-5.1)
[2020-07-13 07:19] VITALS: BP 136/79
--- NOTE | 2020-07-13 10:35 | NUR ---
WOUND CARE F/U; F/U TODAY TO ASESS NEED TO CONTINUE FOLLOWING THIS PATIENT. SURGERY IS FOLLOWING THIS PATINT FOR THE LEFT LEG WHICH HAS A ASHLEIGH DRESSING AWAITING ANY ORDERS TO ASSIST WITH THIS. THE SURGICAL DRESSING IS INTACT/PATIENT AND THE DEVICE IS FUNCTIONING PROPERLY. RECOMMENDATIONS; NONE AT THIS TIME, WAITING FOR FURTHER INSTRUCTIONS. RN PRESENT
--- NOTE | 2020-07-13 13:27 | NUR ---
FAXED CLINICAL UPDATE TO [facility] KARMA SPOKE WITH AMRIK IN ADM SHE RECEIVED UPDATE AND WILL SUBMIT FOR AUTHTea MAURER TO FOLLOW.
--- NOTE | 2020-07-13 15:43 | NUR ---
CARE TEAM INDICATED THAT PT HAS ONCE AGAIN STABILIZED MEDICALLY AND IS READY TO DISHCARGE TO SKILLED REHAB. CLINICAL UPDATES HAVE BEEN SENT TO [facility] AND THEY HAVE RESUBMITTED FOR INSURANCE AUTH. WE ARE AWAITING AUTH FOR PT TO GO TO [facility] MEDICAL RESORT.
--- NOTE | 2020-07-13 18:52 | NUR ---
PT GIVEN PRN PAIN MED AT THIS TIME. PT HAS BEEN UP IN CHAIR FOR MEALS. PT ALERT X4. AWAITING INSURANCE AUTH TO APPROVE.
--- NOTE | 2020-07-13 19:40 | NUR ---
PT'S RESTING IN BED. [employer]ICCO DRESSING CLEAN AND DRY NO BLOOD SHOWING IN DRESSING. PT WATCHING TV. DR SANFORD WAS HERE TODAY NO NEW ORDERS.
[2020-07-13 20:16] VITALS: BP 121/64
--- NOTE | 2020-07-14 02:14 | NUR ---
ASSUMED PT CARE AT 1900.PT C/O PAIN ON HIS L KNEE,MANAGED WITH MED.DRSG TO HIS L KNEE C/D/I.URINAL AT BEDSIDE WITH GOOD URINE OUTPUT.PT LOOKING FORWARD TO BE DC'D LATER IN THE DAY.CALL LIGHT WITHIN REACH.
[2020-07-14 04:54] VITALS: BP 118/56
[2020-07-14 05:55] LABS: CALCIUM 8.7 mg/dL (8.5-10.1); CREATININE 0.9 mg/dL (0.7-1.3); MAGNESIUM 2.2 mg/dL (1.8-2.4); POTASSIUM 4.3 mmol/L (3.5-5.1)
[2020-07-14 06:02] LABS: HEMATOCRIT 27.8 % (42.0-52.0); HEMOGLOBIN 9.1 gm/dL (14.0-18.0); MCH 29.7 pg (26.0-34.0); MCHC 32.9 g/dL (28.0-37.0); MCV 90.4 fL (80.0-100.0); RBC 3.07 mil/uL (4.50-6.00); RDW 15.5 % (10.5-14.5)
[2020-07-14 07:29] VITALS: BP 120/71
--- NOTE | 2020-07-14 13:05 | NUR ---
on-going assessment: CM REVIEWED CHART. CM FAXED UPDATED PT/OT EVALS TO [facility] AND SPOKE WITH LIASON WHO REPORTS WE ARE STILL AWAITING INSURANCE AUTH AT THIS TIME FOR [facility]. CM SPOKE WITH PT WHO IS IRRITATED THAT INSURANCE IS TAKING SO LONG TO MAKE A DECISION. PT REPORTS IF WE DO NOT HAVE A DECISION BY THIS EVENING HE IS NOT STAYING AND IS GOING HOME. CM NOTIFIED ATTENDING. STILL AWAITING INSURANCE AUTH AT THIS TIME. CM WILL CONTINUE TO FOLLOW TO ASSIST NEEDED.
--- NOTE | 2020-07-14 15:02 | NUR ---
ON-GOING ASSESSMENT: CM REVIEWED CHART AND MET WITH PATIENT. CM SPOKE WITH LIASON FROM [facility] WHO REPORTS THEY RECEIVED INSURANCE AUTH AND CAN ACCEPT PT TODAY. CM NOTIFIED DR. SANFORD WELL DR. PATE. DISCHARGE ORDERS WERE FAXED TO [facility] AND CM NOTIFIED LIASON. TRANSPORTATION HAS BEEN ARRANGED FOR 1700. CM NOTIFIED PT AND BEDSIDE RN. CM PROVIDED BEDSIDE RN WITH THE NUMBER FOR REPORT. PT REPORTS HE WILL NOTIFY HIS FAMILY. CHART COPY WAS ORDERED. PT REPORTS NO FURTHER NEEDS FROM PRIOR TO DISCHARGE.
--- NOTE | 2020-07-14 15:09 | NUR ---
PT IS A&OX4, VSS, MAX ASSIST AMBULATION, REGULAR DIET. PT IS FEELING A LITTLE FATIGUE ABOUT THE DURATION OF TIME SPENT HERE. SURGICAL SITE DRESSING IS DRY AND INTACT. PT WILL BE DISCHARGED TODAY TO [facility]. FALL PRECAUTIONS IN PLACE.
[2020-07-14 16:09] VITALS: BP 113/63
--- NOTE | 2020-07-14 17:23 | NUR ---
I AGREE WITH NURSING ASSESSMENT AND NURSING NOTE DONE BY GIA/CIARA.
== END 2020-07-14 18:50 | DRG 469 ==
LOC: TBA 06:28 → 4S 06:28 → PRE 10:14 → 4S 13:50
PROVIDERS: Internal Medicine; ADMIT Orthopaedic Surgery; ATTEND Orthopaedic Surgery
PROC: 0SRD0J9 Replacement of Left Knee Joint with Synthetic Substitute, Cemented, Open Approach (ICD-10-PCS; principal; 2020-07-02)
PROC: 3E0T3BZ Introduction of Anesthetic Agent into Peripheral Nerves and Plexi, Percutaneous Approach (ICD-10-PCS; 2020-07-02)
DX: M17.12 Unilateral primary osteoarthritis, left knee (principal); E43 Unspecified severe protein-calorie malnutrition; Z68.41 Body mass index [BMI] 40.0-44.9, adult; D64.9 Anemia, unspecified; E66.01 Morbid (severe) obesity due to excess calories; E05.90 Thyrotoxicosis, unspecified without thyrotoxic crisis or storm; M21.952 Unspecified acquired deformity of left thigh; M21.951 Unspecified acquired deformity of right thigh; I87.8 Other specified disorders of veins; L53.9 Erythematous condition, unspecified; Y83.8 Other surgical procedures as the cause of abnormal reaction of the patient, or of later complication, without mention of misadventure at the time of the procedure; Y79.8 Miscellaneous orthopedic devices associated with adverse incidents, not elsewhere classified; Y92.230 Patient room in hospital as the place of occurrence of the external cause
CPT/HCPCS: 10102; 50010; 50101; 50415; 50954; 51130; 51225; 51412; 53364; 56525; 57095; 57103; 57104; 57116; 57181; 62110; 62900; 64042; 70005

== ENCOUNTER 2020-10-02 10:29 | Inpatient (IN) | payer OTHER, MEDICARE ==
[~2020-10-02] VITALS: Ht 172.7 cm; Wt 111.1 kg
[~2020-10-02 10:29] MED LIST changes: +DOXYCYCLINE HYC50 MG PO; +NORCO 10-325 T1 EACH PO; +XARELTO10 MG PO
[2020-10-02 10:32] VITALS: BP 116/77
[2020-10-02] MEDS ORDERED: MELOXICAM15 MG PO (10:39)
[2020-10-02 12:15] LABS: ABSOLUTE NEUTROPHILS 6.9 thou/uL (1.4-8.2); BASOPHILS 0.7 % (0.0-2.0); EOSINOPHILS 2.3 % (0.0-3.0); HEMATOCRIT 35.2 % (42.0-52.0); HEMOGLOBIN 11.3 gm/dL (14.0-18.0); LYMPHOCYTES 13.8 % (24.0-44.0); MCH 27.2 pg (26.0-34.0); MCHC 32.2 g/dL (28.0-37.0); MCV 84.6 fL (80.0-100.0); MONOCYTES 10.6 % (1.0-8.0); PLATELET COUNT 264 thou/uL (150-400); POLYS 72.6 % (36.0-66.0); RBC 4.16 mil/uL (4.50-6.00); RDW 18.5 % (10.5-14.5); WBC 9.5 thou/uL (4.0-11.0)
[2020-10-02 12:18] LABS: CALCIUM 9.4 mg/dL (8.5-10.1); CREATININE 0.9 mg/dL (0.7-1.3); POTASSIUM 3.9 mmol/L (3.5-5.1)
[2020-10-02 13:26] LABS: ANISOCYTOSIS 2+
[2020-10-02 15:30] VITALS: BP 142/89
[2020-10-02 16:25] VITALS: BP 135/90
[2020-10-02 17:00] VITALS: BP 135/90
--- NOTE | 2020-10-02 20:00 | NUR ---
ADMISSION ASSESSMENT COMPLETED. PT ALERT AND ORIENTED. SOME REMOTE CONFUSION. HE IS PLEASANT. C/O SPASMS AND NUMBNESS TO BLE, MORE ON THE RIGHT.HE TRIESW TO USE URINAL, REPORTS FREQUENCY AND URGENCY WITH URINATION. FALL PREC IN PLACE, CALL LIGHT WITHIN REACH.
[2020-10-02 22:32] VITALS: BP 125/77
[2020-10-03 07:15] VITALS: BP 138/72
[2020-10-03 08:33] LABS: HEMATOCRIT 34.4 % (42.0-52.0); HEMOGLOBIN 10.9 gm/dL (14.0-18.0); MCH 26.9 pg (26.0-34.0); MCHC 31.8 g/dL (28.0-37.0); MCV 84.7 fL (80.0-100.0); RBC 4.06 mil/uL (4.50-6.00); RDW 18.7 % (10.5-14.5); WBC 7.4 thou/uL (4.0-11.0)
--- NOTE | 2020-10-03 11:04 | NUR ---
PT CARE ASSUMED AT 0700. A&Ox4. PT STATES THAT HE HAS NO FEELING IN HIS R. FOOT AND LEG AND CANNOT MOVE IT. ORTHO HAS BEEN CONSULTED. NO KNEE SURGERY AT THIS TIME. DR. DAVALOS RECOMMENDS SKILLED UNTIL PT CAN GWT INTO SURGERY EARLY NEXT YEAR. DR. DAVALOS HAS APIRATED FLUIDS OUT OF PT L. ELBOW, CULTURES COLLECTED. PT USES URINAL. SCD'S IN PLACE. PT DOES NOT HOLD EYE CONTACT AND HAS A FLAT AFFECT. REPEATS SAME STATEMENTS MULTIPLE TIMES. FALL PROTOCOL IN PLACE. WHEN ADMITTED PT WAS COVERED IN URINE AND IN POOR HYGIENE. CALL LIGHT IN REACH. WILL CONTINUE TO MONITOR.
[2020-10-03 13:06] LABS: BF NUCLEATED CELLS 613 /mm3; BF RBC 46366 /mm3
[2020-10-03 13:07] LABS: CLARITY TURBID; COLOR RED; TOTAL VOLUME <1 mL
[2020-10-03 13:48] LABS: SOURCE SYNOVIAL
[2020-10-03 13:49] LABS: BF MACROPHAGE 4 %; BF NEUTROPHILS 93 %
[2020-10-03 15:20] LABS: ALBUMIN 2.8 g/dL (3.4-5.0); CALCIUM 9.3 mg/dL (8.5-10.1); CREATININE 0.8 mg/dL (0.7-1.3); POTASSIUM 3.8 mmol/L (3.5-5.1); TOTAL BILIRUBIN 0.5 mg/dL (0.2-1.0); TOTAL PROTEIN 7.9 g/dL (6.4-8.2)
[2020-10-03 16:13] VITALS: BP 120/83
[2020-10-03 19:45] VITALS: BP 142/91
--- NOTE | 2020-10-04 06:01 | NUR ---
PT LYING IN BED. VOIDING PER URINAL. DENIES NEED FOR PAIN MEDICATION. RESTING COMFORTABLY. NO NEEDS VOICED. CALL LIGHT WITHIN REACH. FREQUENT OBSERVATION.
[2020-10-04 07:35] VITALS: BP 129/87
--- NOTE | 2020-10-04 08:14 | NUR ---
assumed care at 0700. pt is a&o x 4. pt denies any pain, n/v,d, soa. pt states that there is still muscle spasms but it is tolerable right now. iv on left upper arm is intact and shows no signs of redness or swelling. pt has soft abd. scd hose are in place. right leg is bent. bilateral ankles are swollen and edema. right leg will move by itself when he tries to stretch out right leg. fall precaution. call light within reach. frequent check on pt. bedrest. left elbow is swollen but reducing to normal size as right elbow. vss. ra.will continue to monitor.
[2020-10-04 16:16] VITALS: BP 141/92
[2020-10-04 20:12] VITALS: BP 120/66
[2020-10-05 03:40] LABS: ABSOLUTE NEUTROPHILS 5.6 thou/uL (1.4-8.2); BASOPHILS 0.7 % (0.0-2.0); HEMATOCRIT 35.8 % (42.0-52.0); HEMOGLOBIN 11.3 gm/dL (14.0-18.0); LYMPHOCYTES 17.9 % (24.0-44.0); MCHC 31.7 g/dL (28.0-37.0); MCV 85.2 fL (80.0-100.0); MONOCYTES 8.5 % (1.0-8.0); PLATELET COUNT 239 thou/uL (150-400); POLYS 66.9 % (36.0-66.0); RBC 4.21 mil/uL (4.50-6.00); RDW 18.6 % (10.5-14.5); WBC 8.3 thou/uL (4.0-11.0)
[2020-10-05 04:17] LABS: CALCIUM 9.2 mg/dL (8.5-10.1); CREATININE 0.9 mg/dL (0.7-1.3); MAGNESIUM 1.8 mg/dL (1.8-2.4); POTASSIUM 3.9 mmol/L (3.5-5.1)
[2020-10-05 04:28] VITALS: BP 119/79
--- NOTE | 2020-10-05 06:44 | NUR ---
ASSUMED PT CARE AT SHIFT CHANGEE. PT IS A&OX4. VSS. PT IS ON ROOM AIR. PT USES URINAL AND BEDPAN IN THE BED. PT COMPLAINS OF MUSCLE SPASMS. PT DENIES PAIN AND NO NAUSEA. PT COMUNICATES WHEN HE NEEDS ASSISTANCE. WILL CONTINUE TO MONITOR.
--- NOTE | 2020-10-05 07:26 | NUR ---
THIS NURSE AGREES WITH ASSESSMENT AND NOTES BY SAND CONDITIONER MACHINE ON THIS PATIENT.
[2020-10-05 07:40] VITALS: BP 123/80
--- NOTE | 2020-10-05 13:51 | NUR ---
ASSUMED CARE AT 0700. PT HAS DONE MRI THIS AM. MRI WAS STAT ORDER FROM YESTERDAY 10/04. HOWEVER THERE WAS NO ONE TO TAKE HIM. IV ON LEFT UPPER IS INTACT AND SHOWS NO REDNESS OR SWELLING. PT COMPLAINS OF MUSCLE SPASMS AND PAIN WAS GIVEN OXYCODONE. PT IS A&O X4. RA. VSS. FALL PRECAUTION. CALL LIGHT WITHIN REACH. WILL CONTINUE TO MONITOR PT.
--- NOTE | 2020-10-05 15:24 | NUR ---
ASSESSMENT: CM REVIEWED CHART AND SPOKE WITH PT. PT IS ALERT AND ORIENTED X4. PT WAS ADMITTED DUE TO RIGHT KNEE PAIN AND INABILITY TO AMBULATE/WEAKNESS. PT REPORTS HE WAS HERE AT [facility] AND THEN WAS DISCHARGED TO [facility]. PT REPORTS FROM THERE HE WENT HOME WHERE HE LIVES WITH HIS WITH HH ([facility]) BUT REPORTS HE WAS DISCHARGED FROM . PT REPORTS HE HAS SIX STEPS WITH HANDRAIL TO ENTER THE HOME. PT REPORTS ONCE INSIDE THERE ARE NO STEPS HE HAS TO USE BUT DOES HAVE ABOUT 14 TO THE BASEMENT. PT REPORTS HE WAS USING A CANE AT HOME AND A WALKER FOR LONG DISTANCES. PT REPORTS HE HAS A SHOWER CHAIR. PT STATES HE IS CONCERNED ABOUT HIS INABILITY TO WALK. 5N HAS BEEN CONSULTED TO SEE PATIENT. PT IS TO GET AN MRI AND NEUROLOGY IS FOLLOWING PT. PT CURRENTLY UNABLE TO WORK WITH THERAPIES AT THIS TIME AND WILL AWAIT FURTHER RECOMMENDATIONS. CM WILL CONTINUE TO FOLLOW.
[2020-10-05 17:49] LABS: INR 1.1; PROTIME 11.7 Seconds (9.3-11.4)
[2020-10-05 18:14] VITALS: BP 130/76
[2020-10-05 20:14] VITALS: BP 127/81
--- NOTE | 2020-10-06 01:31 | NUR ---
ASSUMED PT CARE AT 1915. PT IS A&O X 4. VSS. IV IS PATENT IN THE RIGHT AC. PT IS BEDREST AND USES THE URINAL IN THE BED/ HAS MOMENTS OF INCONTINENCE. PT IS UNABLE TO AMBULATE. PT TAKES MEDICATION WHOLE AND IS TOLERATING IV MEDICATION. PT VOICES HIS DISLIKE IN THE FACT THAT HE HAS TO GO TO ANOTHER FACILITY. I EXPLAINED TO HIM THAT THE CARE HE NEEDS WOULD BE TAKEN CARE OF BETTER BY THE FACILITY HE WAS BEING TRANSFERED TO. PT WAS PICKED UP BY [facility] DEPT. AT [address] [facility]. I TOOK VITALS BEFORE HE LEFT AND GAVE REPORT TO THE [facility] DPET STAFF. DR CABRAL, HOUSE SUPERVISER (AIMEE) AND DEANDRA (MANAGER CASINO) ORGANIZED THE TRANSPORT FOR THIS PT.
--- NOTE | 2020-10-13 14:01 | HC ---
[facility] [address] [place] [address] CONSULTATION Name: SOWMYA VUONG Room #: 442-P [facility] IN M.Issa.#: [id number] Admission: 10/02/20 Attend Phys: Domo Jade MD Discharge: 10/06/20 Date of : 54 Report #: [id number] THIS REPORT FOR: cc: Damon Mcneill MD, Mohammad MD [place], Roxane S. DO NEUROLOGY CONSULTATION ROOM: 442 HISTORY OF PRESENT ILLNESS: The patient is a 69-year-old male who told us that for approximately 2-3 weeks, he has had spasms in the lower extremities. He bought something like snake oil venom capsules online. He took 1 or 2 on Monday and 1 or 2 on . When he woke up on Monday, he realized that his legs were weak. He has not taken any more of this medication. He was taking it at night to try and help him sleep. The patient states that when he first got to the Emergency Room, he was able to sit up on the side of the bed and was able to wiggle his feet. Today, he has no movement of the legs. He tells me he has been constipated since he came here and feels like he has to urinate every 2 hours. He has numbness and tingling up to his knees. He has no tingling of his trunk. He denies neck or back pain. He has not had a fever. Since he has been here, he has been diagnosed with swelling over the olecranon bursa, which was drained. In June, the patient had severe knee osteoarthritis and had a knee replacement at that time, he was supposed to have another knee replaced in November. PAST MEDICAL HISTORY: Osteoarthritis, hyperthyroidism, borderline hypertension, coronary artery disease. PAST SURGICAL HISTORY: Umbilical hernia repair, left total knee replacement. MEDICATIONS: Meloxicam daily, methimazole daily. ALLERGIES: None. PHYSICAL EXAMINATION: VITAL SIGNS: Temperature 36.7, pulse rate 94, respiratory rate 20, blood pressure 129/87, bedside pulse oximetry 92% on room air. NEUROLOGIC: Cranial nerves 2-12 are grossly intact. Motor exam demonstrates symmetrical strength in the upper extremities. He is able to lift his arms above his head. In the lower extremities, he has little if any movement. He cannot flex or extend the toes or ankles. He cannot flex or extend the knees or hips. There is just a bare trace of movement. Reflexes are absent throughout. Plantar responses appear flexor; however, when performing a Babinski sign, the patient appears to have a triple flexion response and his ankle, knee and hip [address] [address] CONSULTATION Name: SOWMYA VUONG Room #: 442-P [facility] IN M.R.#: [id number] Admission: 10/02/20 Attend Phys: Domo Jade MD Discharge: 10/06/20 Date of : 54 Report #: [id number] flexed toward his body. This is more obvious on the right than the left. Coordination reveals intact [id number]. Gait cannot be tested. The patient has numbness to the knees. LABORATORY WORK: Hematology: White blood cell count 7.4; hemoglobin 10.9; hematocrit 34.4; MCV 84.7; platelet count 220,000. Chemistry: Sodium 138, potassium 3.8, chloride 102, carbon dioxide 26, BUN 14, creatinine 0.8, GFR 96, glucose 87, calcium 9.3. Liver functions normal. IMAGING STUDIES: CT scan of the head negative. X-rays of the lumbar spine demonstrate degenerative disk disease at T11-T12 and T12-L1. IMPRESSION: I am concerned about a central spinal cord process. I have asked for a stat MRI of the lumbar spine. If nothing can be found on the MRI, then he will need an MRI of the thoracic and cervical spine. Further recommendations will be made based on the diagnostic studies performed. I thank you for your kind referral of the patient. The neurologist conduit mechanic tomorrow will see the patient. <ELECTRONICALLY SIGNED> By: Maite Joiner DO 10/13/20 [id number] [id number] Maite Joiner DO /nt
== END 2020-10-06 00:18 | disposition short-term general hospital (02) | DRG 539 ==
LOC: ER 10:29 → 4S 15:55 → EROBS 15:55 → 4S 17:13
PROVIDERS: Emergency Medicine; Hospitalist; Internal Medicine; ADMIT Internal Medicine; ATTEND Internal Medicine
PROC: 0M933ZZ Drainage of Right Elbow Bursa and Ligament, Percutaneous Approach (ICD-10-PCS; principal; 2020-10-03)
DX: M46.24 Osteomyelitis of vertebra, thoracic region (principal); E43 Unspecified severe protein-calorie malnutrition; M70.22 Olecranon bursitis, left elbow; M17.11 Unilateral primary osteoarthritis, right knee; M47.896 Other spondylosis, lumbar region; M25.422 Effusion, left elbow; E03.9 Hypothyroidism, unspecified; M62.838 Other muscle spasm; Z96.652 Presence of left artificial knee joint; E66.01 Morbid (severe) obesity due to excess calories; L93.2 Other local lupus erythematosus; M46.44 Discitis, unspecified, thoracic region; E05.90 Thyrotoxicosis, unspecified without thyrotoxic crisis or storm; I25.10 Atherosclerotic heart disease of native coronary artery without angina pectoris; R33.9 Retention of urine, unspecified; R32 Unspecified urinary incontinence; G83.9 Paralytic syndrome, unspecified; Z68.37 Body mass index [BMI] 37.0-37.9, adult; Z20.828 Contact with and (suspected) exposure to other viral communicable diseases; Z23 Encounter for immunization
CPT/HCPCS: 10195